=== PATIENT | male | born 1955 | race Caucasian/White ===

== ENCOUNTER 2022-05-07 11:22 | Inpatient (IN) | payer MEDICARE, BC ==
[~2022-05-07] VITALS: Ht 177.8 cm; Wt 92.5 kg
[2022-05-07] MEDS ORDERED: SUMATRIPTAN SUCCINATE 6 MG/0.5 ML VIAL SQ ONE ×2 (12:20→12:30)
[2022-05-07] MEDS ORDERED: METOCLOPRAMIDE HCL 10 MG/2 ML VIAL ONE (12:21)
[2022-05-07 12:29] LABS: BASOPHILS # (AUTO) 0.1 K/uL (0.0-0.2); BASOPHILS % (AUTO) 0.7 % (0.0-2.0); EOSINOPHILS % (AUTO) 3.5 % (0.0-6.0); HEMATOCRIT 43 % (39-51); HEMOGLOBIN 14.4 g/dL (13.5-17.5); LYMPHOCYTES # (AUTO) 1.8 K/uL (0.8-4.8); LYMPHOCYTES % (AUTO) 25.7 % (20.0-44.0); MEAN CORPUSCULAR HGB CONC 34 g/dl (31.0-36.0); MEAN CORPUSCULAR VOLUME 99 fL (80-96); MONOCYTES # (AUTO) 0.6 K/uL (0.1-1.30); MONOCYTES % (AUTO) 8.8 % (2.0-12.0); NEUTROPHILS # (AUTO) 4.3 K/uL (1.8-8.9); NEUTROPHILS % (AUTO) 61.3 % (43.0-81.0); PLATELET COUNT (AUTO) 248 K/uL (150-450); RED BLOOD CELL COUNT(AUTO) 4.33 MIL/uL (4.5-6.0)
[2022-05-07] MEDS ORDERED: IV NS 0.9% 1,000 ML BAG IV ONE (12:30)
[2022-05-07] MEDS ORDERED: METOCLOPRAMIDE HCL 10 MG/2 ML VIAL IV ONE (12:30)
--- NOTE | 2022-05-07 12:33 | NUR ---
PT TAKEN TO RADIOLOGY FOR CT
[2022-05-07 12:36] LABS: CALCIUM, SERUM 9.6 mg/dL (8.5-10.1); CARBON DIOXIDE 26 mmol/L (21-32); CHLORIDE 101 mmol/L (98-107); CREATININE 2.4 mg/dL (0.6-1.3); GLUCOSE 130 mg/dL (74-106); POTASSIUM 4.7 mmol/L (3.5-5.1); SODIUM SERUM 135 mmol/L (136-145); UREA NITROGEN, BLOOD 44 mg/dL (7-18)
--- NOTE | 2022-05-07 12:41 | NUR ---
PT BACK FROM RADIOLOGY
[2022-05-07 12:42] LABS: ALANINE AMINOTRANSFERASE 28 U/L (12-78); ALBUMIN 3.4 g/dL (3.4-5.0); ALKALINE PHOSPHATASE 62 U/L (46-116); ASPARTATE AMINOTRANSFERASE 21 U/L (15-37); BILIRUBIN,DIRECT 0.1 mg/dL (0.0-0.2); BILIRUBIN,TOTAL 0.4 mg/dL (0.2-1.0); TOTAL PROTEIN, SERUM 7.3 g/dL (6.4-8.2)
--- NOTE | 2022-05-07 13:00 | NUR ---
COVID SWAB COLLECTED AND SENT TO LAB
[2022-05-07] MEDS ORDERED: ATOR80TA PO (13:12)
[2022-05-07] MEDS ORDERED: EMPA25TA PO (13:12)
[2022-05-07] MEDS ORDERED: BUPR-54 PO (13:12)
[2022-05-07] MEDS ORDERED: METF-881 PO (13:12)
[2022-05-07] MEDS ORDERED: ZOLP10TA2 PO (13:12)
[2022-05-07] MEDS ORDERED: CITA40TA11 PO (13:12)
[2022-05-07] MEDS ORDERED: LOSA50TA39 PO (13:12)
[2022-05-07] MEDS ORDERED: GLIP5TAB26 PO (13:12)
[2022-05-07] MEDS ORDERED: METO25TA4 PO (13:12)
[2022-05-07] MEDS ORDERED: PRAV40TA3 PO (13:12)
[2022-05-07] MEDS ORDERED: HYDR25TA4 PO (13:12)
--- NOTE | 2022-05-07 13:37 | NUR ---
MOVE SHEET SUBMITTED.
--- NOTE | 2022-05-07 13:41 | NUR ---
[facility] CALLED LIBRARY ASSISTANT PAGED.
--- NOTE | 2022-05-07 13:47 | NUR ---
AMBULATED TO THE RESTROOM WITH STEADY GAIT
--- NOTE | 2022-05-07 14:24 | NUR ---
[facility] CALLED ROAD DRIVER PAGED.
--- NOTE | 2022-05-07 15:20 | NUR ---
DR TIJERINA AT BEDSIDE FOR NEURO CONSULT
[2022-05-07] MEDS ORDERED: Z GUARD REMEDY 4 OZ OINT TP PRN (15:30)
[2022-05-07] MEDS ORDERED: ONDANSETRON HCL/PF 4 MG/2 ML VIAL IVP PRN (15:30)
--- NOTE | 2022-05-07 15:38 | NUR ---
DR TAY AT BEDSIDE
--- NOTE | 2022-05-07 15:53 | NUR ---
ROOM 119-1
--- NOTE | 2022-05-07 15:58 | NUR ---
PT REPORT GIVEN TO LACEY CAMACHO.
[2022-05-07] MEDS: METFORMIN XR 500 MG TAB.SR.24H PO SCH (18:40)
--- NOTE | 2022-05-07 19:10 | NUR ---
RN NOTES RECEIVED REPORT FROM MORNING RN. PATIENT IN BED A/O CX3 ABLE TO MAKE NEEDS KNOWN. ON ROOM AIR SATING 98%. NO SOB NO DISTRESS NOTED AT THIS TIME. WITH IV ACCESS ON R AC PATENT CONNECTED TO IVF NS 75ML/HR. PATIENT ABLE TO WALK TO BATHROOM WITH ASSIST. ALL SAFETY MEASURES IN PLACE AT ALL TIMES. HOB ELEVATED. CALL LIGHT WITHIN REACH WILL CLOSELY MONITOR THE PATIENT
[2022-05-07] MEDS: IV NS 0.9% 1,000 ML IV PRN (19:22)
[2022-05-07 20:00] VITALS: BP 141/74
--- NOTE | 2022-05-07 20:25 | NUR ---
RN NOTE PT RESTING IN BED, VERBALLY RESPONSIVE. CONT IN ROOM AIR. NOT IN DISTRESS. MILD PAIN STILL NOTED ON L EYE BUT VERBALIZED PAIN IS IMPROVING. IV ACCESS ON RAC G20 WITH IVF NS @75/HR. DUE MEDS TAKEN. V/S STABLE. SAFETY MAINTAINED.
[2022-05-07] MEDS: ATORVASTATIN 40 MG TABLET PO SCH (22:00)
[2022-05-07] MEDS: ZOLPIDEM TARTRATE 5 MG TABLET PO PRN (22:58)
[2022-05-07] MEDS: ACETAMINOPHEN 325 MG TABLET PO PRN (22:58)
[2022-05-08] VITALS: BP 139/72
[2022-05-08 04:00] VITALS: BP 144/78
--- NOTE | 2022-05-08 06:53 | NUR ---
RN NOTES PATIENT REMAINS STABLE NO SIGNIFICANT CHANGES IN HEALTH CONDITION. ALL DUE MEDS GIVEN ORDERED. STILL WITH IVF RUNNING NS 75 ML/HR. ALL SAFETY MEASURES IN PLACE AT ALL TIMES. HOB ELEVATED. CALL LIGHT WITHIN REACH BED ON LOWEST POSITION. WILL ENDORSED TO MORNING SHIFT FOR FOUZIA
[2022-05-08 07:05] LABS: BASOPHILS # (AUTO) 0.1 K/uL (0.0-0.2); BASOPHILS % (AUTO) 1.2 % (0.0-2.0); EOSINOPHILS % (AUTO) 4.9 % (0.0-6.0); HEMATOCRIT 39 % (39-51); HEMOGLOBIN 13.2 g/dL (13.5-17.5); LYMPHOCYTES # (AUTO) 2.2 K/uL (0.8-4.8); LYMPHOCYTES % (AUTO) 35.3 % (20.0-44.0); MEAN CORPUSCULAR HGB CONC 34 g/dl (31.0-36.0); MEAN CORPUSCULAR VOLUME 98 fL (80-96); MONOCYTES # (AUTO) 0.7 K/uL (0.1-1.30); MONOCYTES % (AUTO) 10.6 % (2.0-12.0); PLATELET COUNT (AUTO) 185 K/uL (150-450); RED BLOOD CELL COUNT(AUTO) 3.92 MIL/uL (4.5-6.0); WHITE BLOOD COUNT (AUTO) 6.3 K/uL (4.3-11.0)
--- NOTE | 2022-05-08 07:34 | NUR ---
RN OPENING NOTES RECEIVED REPORT FROM [facility]. PATIENT REMAINS STABLE NO SIGNIFICANT CHANGES IN HEALTH CONDITION. IVF RUNNING NS 75 ML/HR VIA IV ACCESS ON RIGHT ANTECUBITAL . ALL SAFETY MEASURES IN PLACE AT ALL TIMES. HOB ELEVATED. CALL LIGHT WITHIN REACH BED ON LOWEST POSITION. WILL CONTINUE PLAN OF CARE AND ANTICIPATE NEEDS.
[2022-05-08 07:42] LABS: BILIRUBIN,TOTAL 0.5 mg/dL (0.2-1.0); CALCIUM, SERUM 8.6 mg/dL (8.5-10.1); CREATININE 1.8 mg/dL (0.6-1.3); MAGNESIUM 1.8 mg/dL (1.8-2.4); TOTAL PROTEIN, SERUM 6.5 g/dL (6.4-8.2)
[2022-05-08 08:00] VITALS: BP 141/78
[2022-05-08] MEDS: CITALOPRAM HYDROBROMIDE 20 MG TABLET PO SCH (08:52)
[2022-05-08] MEDS: METFORMIN XR 500 MG TAB.SR.24H PO SCH ×2 (08:52→17:12)
[2022-05-08] MEDS: BUPROPION XL 150 MG TAB.ER.24 PO SCH (08:52)
[2022-05-08] MEDS: glipiZIDE XL 2.5 MG TAB.OSM.24 PO SCH (08:52)
[2022-05-08] MEDS: METOPROLOL SUCCINATE 25 MG TAB.SR.24H PO SCH (08:53)
[2022-05-08] MEDS: LOSARTAN POTASSIUM 50 MG TABLET PO SCH (08:53)
[2022-05-08] MEDS: HYDROCHLOROTHIAZIDE 25 MG TABLET PO SCH (08:53)
--- NOTE | 2022-05-08 09:45 | NUR ---
followup with juan pablo mri will be done today later afternoon. primary RN notified.
[2022-05-08] MEDS: ACETAMINOPHEN 325 MG TABLET PO PRN ×2 (11:02→23:12)
[2022-05-08 12:00] VITALS: BP 132/74
[2022-05-08] MEDS: IV NS 0.9% 1,000 ML IV PRN (15:19)
[2022-05-08 16:00] VITALS: BP 142/96
--- NOTE | 2022-05-08 18:55 | NUR ---
RN CLOSING NOTES PATIENT REMAINS IN STABLE CONDITION. SAFETY MEASURES IMPLEMENTED. HAND OFF REPORT GIVEN TO N[facility] RN FOR CONTINUATION OF CARE.
[2022-05-08 20:00] VITALS: BP 151/82
[2022-05-08] MEDS: ATORVASTATIN 40 MG TABLET PO SCH (21:52)
[2022-05-08] MEDS: ZOLPIDEM TARTRATE 5 MG TABLET PO PRN (23:12)
[2022-05-09] VITALS: BP 137/84
[2022-05-09 05:04] VITALS: BP 116/69
[2022-05-09] MEDS: ACETAMINOPHEN 325 MG TABLET PO PRN (05:18)
--- NOTE | 2022-05-09 07:15 | NUR ---
RN OPENING NOTES RECIEVED PATIENT IN STABLE CONDITION. IVF RUNNING NS 75 ML/HR. ALL SAFETY MEASURES IN PLACE AT ALL TIMES. HOB ELEVATED. CALL LIGHT WITHIN REACH BED ON LOWEST POSITION. WILL CONTINUE PLAN OF CARE AND ANTICIPATE NEEDS.
[2022-05-09 08:00] VITALS: BP 142/70
[2022-05-09] MEDS: CITALOPRAM HYDROBROMIDE 20 MG TABLET PO SCH (08:45)
[2022-05-09] MEDS: METFORMIN XR 500 MG TAB.SR.24H PO SCH (08:46)
[2022-05-09] MEDS: BUPROPION XL 150 MG TAB.ER.24 PO SCH (08:46)
[2022-05-09] MEDS: glipiZIDE XL 2.5 MG TAB.OSM.24 PO SCH (08:46)
[2022-05-09] MEDS: HYDROCHLOROTHIAZIDE 25 MG TABLET PO SCH (08:47)
[2022-05-09] MEDS: LOSARTAN POTASSIUM 50 MG TABLET PO SCH (08:47)
[2022-05-09] MEDS: METOPROLOL SUCCINATE 25 MG TAB.SR.24H PO SCH (08:48)
[2022-05-09] MEDS ORDERED: EMPAGLIFLOZIN 25 MG TABLET PO SCH (09:00)
[2022-05-09] MEDS ORDERED: ASPIRIN EC 81 MG TABLET.DR PO SCH (09:00)
[2022-05-09] MEDS ORDERED: JARDIANCE 25 MG PO SCH (09:00)
[2022-05-09] MEDS ORDERED: ASPI-1169 PO (09:11)
--- NOTE | 2022-05-09 10:13 | NUR ---
non admin jardiance. patient recieved medication earlier today
[2022-05-09 12:00] VITALS: BP 143/76
--- NOTE | 2022-05-09 13:38 | NUR ---
PATIENT HAS BEEN DISCHARGED HOME. DISCHARGE PAPERWORK SIGNED, DISCHARGE TEACHING PERFORMED, PATIENT VERBALIZED UNDERSTANDING. HOSPITAL ID BAND REMOVED, IV ACCESS DISCONTINUED. PATIENT WAS WHEELED VIA WHEELCHAIR TO FRONT LOBBY WHERE HE WAS PICKED UP BY HIS FAMILY MEMBER IN A PRIVATE VEHICLE. PATIENT LEFT FACILITY IN STABLE CONDITION.
== END 2022-05-09 13:34 | disposition home or self-care (01) | DRG 102 ==
LOC: ER 11:26 → MEDSG1 15:55 → TELE1 18:30
PROVIDERS: ADMIT Internal Medicine; ATTEND Internal Medicine
DX: G43.909 Migraine, unspecified, not intractable, without status migrainosus (principal); N17.0 Acute kidney failure with tubular necrosis; E87.1 Hypo-osmolality and hyponatremia; I10 Essential (primary) hypertension; E78.5 Hyperlipidemia, unspecified; E11.9 Type 2 diabetes mellitus without complications; G47.00 Insomnia, unspecified; Z20.822 Contact with and (suspected) exposure to COVID-19
CPT/HCPCS: 36415; 70450-TC; 70544-TC; 70547-TC; 70551-TC; 71045-TC; 76770-TC; 80048-TC; 80053-TC; 80076-TC; 83735-TC; 84100-TC; 84484-TC; 85025-TC; 85730-TC; 87081-TC; 93307-TC; C9803; G0378; J2765; J3030; J7030